=== PATIENT | female | born 1975 | race Caucasian/White ===

== ENCOUNTER 2016-07-03 17:26 | Emergency (ER) | payer OTHER ==
[~2016-07-03] VITALS: Ht 157.5 cm; Wt 65.9 kg
[~2016-07-03 17:26] MED LIST: FES300; PREN1TAB47
[2016-07-03 17:29] VITALS: BP 137/95; PULSE 99; RESP 16; O2SAT 97
--- NOTE | 2016-07-03 17:34 | ED.REPORT ---
HPI-GI Bleed Date of Service July 03, 2016 ED Provider: Dr. Issac Wang M.D. The patient is a 41 year old female with a history of external hemorrhoids who presents to the ED with intermittent rectal bleeding onset two days ago. The patient reports bright red blood with clotting on her toilet tissue. She also reports mild constipation and several months of upper abdominal pain in the evenings. The patient denies vaginal bleeding, rectal pain, nausea, vomiting, lightheadedness, dizziness, or other symptoms. She took laxatives today, with no relief. The patient has had similar bleeding associated with an external hemorrhoid in the past. Nursing Notes Stated Complaint: RECTAL BLEEDING Chief Complaint: General Complaint Nursing Notes Reviewed: Yes Allergies: Coded Allergies: No Known Allergies (Verified , 07/03/16) Miscellaneous Medications Ferrous Sulfate-Expunged Drug, Do Not Renew! (Feosol-Expunged Drug, Do Not Renew !) 325 Mg Tablet Vit/Fe Fumarate/Fa-Expunged Drug, Do (-Expunged Drug, Do Not Renew!) 1 Tab Tablet General Time Seen by Provider: 17:34 Chief Complaint Chief Complaint: Blood on toilet tissue Hx Obtained From: Patient Arrived By: Walk-in Onset Occurred: 2 days ago Symptom Duration: Since onset Location: : Abdomen lower Quality: Painful Severity: Current: No pain currently Severity: Maximum: Moderate Pertinent Negative: Relieved by nothing Related History: Reports: Hemorrhoids Immunizations: Unknown Recent Healthcare: No recent doctor visit Similar Sx Previous: Yes Past Medical History Past Medical History External hemorrhoids Reports: Mental illness Past Surgical History None reported Smoking History Unknown if Ever Smoker Social History Other Social History: Good social support, Ambulatory Status Independent Review of Systems Review of Systems Note: + Rectal bleeding: bright red blood with clotting on toilet tissue Constitutional: Denies: Fever Respiratory: Denies: Non-productive cough, Shortness of breath GI: Reports: Abdominal pain (Upper), Constipation (Mild), Denies: Nausea, Rectal pain, Vomiting Neurologic: Denies: Dizziness, Lightheaded Complete sys rev & neg: except as marked. Female: Denies: Vaginal bleeding - abnl Physical Exam Initial Vital Signs Vital Signs (First) Date Time Temp Pulse Resp B/P Pulse Ox O2 Delivery O2 Flow Rate FiO2 07/03/16 17:29 36.7 99 16 137/95 97 Room Air Initial VS: Reviewed General/Constitutional: Awake, Alert, No acute distress Respiratory / Chest: Breath sounds NL, Breath sounds = bilat, No respiratory distress Cardiovascular: Heart rate NL, Regular rhythm, Heart sounds NL Abdomen: Soft, No guarding, No palpable mass Tenderness/Guarding/Rebound: Positive: Tender diffuse (Mild) Rectum / Perineum: Atraumatic, No gross blood, No discharge, No fecal impaction , No hemorrhoids, No mass Skin tags on anal verge Lower Extremity / Pelvis / MS: Atraumatic Chronic soft dermal mass on medial right thigh without tenderness, erythema, or warmth Interpretation & Diagnostics Lab Results Interpretation Result Diagram: 07/03/16 1825 07/03/16 1825 Test 07/03/16 18:25 White Blood Count 9.4th/mm3 (3.8-10.1) Red Blood Count 4.47mil/mm3 (3.90-5.20) Hemoglobin 12.4g/dL (12.0-15.6) Hematocrit 37.1% (35.0-46.0) Mean Corpuscular Volume 83.0fL (81-100) Mean Corpuscular Hemoglobin 27.7pg (27.0-35.0) Mean Corpuscular Hemoglobin Concent 33.4% (32.0-37.0) Red Cell Distribution Width 12.8% (12.3-15.4) Platelet Count 208bil/L (150-400) Neutrophils (%) (Auto) 69.0% (40-74) Lymphocytes (%) (Auto) 19.7% (14-46) Monocytes (%) (Auto) 8.5% (4-12) Eosinophils (%) (Auto) 2.1% (0-5) Basophils (%) (Auto) 0.5% (0-3) Sodium Level 136mEq/L (134-144) Potassium Level 4.1mEq/L (3.5-5.2) Chloride Level 100mEq/L (97-108) Carbon Dioxide Level 23mmol/L (18-29) Blood Urea Nitrogen 11mg/dL (6-20) Creatinine 0.87mg/dL (0.57-1.00) Estimat Glomerular Filtration Rate 104mL/min (>59) Glucose Level 105mg/dL (60-99) Calcium Level 9.5mg/dL (8.5-10.1) Total Bilirubin 0.5mg/dL (0.0-1.2) Aspartate Amino Transf (AST/SGOT) 20U/L (0-50) Alanine Aminotransferase (ALT/SGPT) 16U/L (0-32) Alkaline Phosphatase 100U/L (25-150) Total Protein 7.3g/dL (6.4-8.4) Albumin 4.0g/dL (3.4-5.0) Hold Pro Top Tube Received (Received) Re-Eval/Medical Decision Re-Evaluation/Progress #1: Time of Eval: 18:00 Patient Status: Condition improved Re-Evaluation/Progress Note: Rectal exam performed Re-Evaluation/Progress #2: Time of Eval: 18:10 Patient Status: Condition improved Re-Evaluation/Progress Note: Discussed with patient lab results, diagnosis, and plan for discharge. Follow-up and return to the ER instructions given. Patient agrees with plan for care and all questions were addressed. Counseled Regarding: Diagnosis, Lab results, Need for follow-up, When/why to return to ED Discharge & Departure Impression: Primary Impression: Hematochezia Disposition: Home Discharge Condition All VS Reviewed: Yes Condition: Improved Patient Instructions: Rectal Bleeding (ED) Additional Instructions: No dangerous cause for the bleeding was discovered today. I recommended he follow-up with gastroenterology for diagnostic colonoscopy in the coming 1-3 weeks. If you have trouble making this appointment just give me a call. Follow-up right away of course if you have brisk persistent bleeding, fainting or vomiting of blood. If you have any questions you can just give me a call. Referrals: Remi Schneider MD Attestation Portions of this note were transcribed by Tiara Caldwell. I, Dr. Wang, personally performed the history, physical exam, and medical decision-making; I reviewed and confirmed the accuracy of the information in the transcribed note. Signed by: Charito Calhoun, 07/03/2016, 19:10 copies to: Remi Schneider MD, Kirk H MD July 03, 2016 17:34 TIARA CALDWELL July 03, 2016 17:41
[2016-07-03 18:03] VITALS: BP 128/81; PULSE 91; O2SAT 98
[2016-07-03 18:04] VITALS: BP 129/67; PULSE 110; O2SAT 96
[2016-07-03 18:35] LABS: BASOPHILS % (AUTO) 0.5 % (0-3); EOSINOPHILS % (AUTO) 2.1 % (0-5); MONOCYTES % (AUTO) 8.5 % (4-12); Mean Corpuscular Hemoglobin 27.7 pg (27.0-35.0); Platelet Count 208 bil/L (150-400)
== END 2016-07-03 19:05 | disposition home or self-care (01) ==
LOC: SED 17:26
DX: K92.1 Melena (principal); K59.00 Constipation, unspecified; R10.10 Upper abdominal pain, unspecified; K64.4 Residual hemorrhoidal skin tags